=== PATIENT | female | born 1990 | race Caucasian/White ===

== ENCOUNTER 2020-06-06 09:44 | Inpatient (IN) | payer OTHER ==
[~2020-06-06] VITALS: Ht 154.9 cm; Wt 51.9 kg
--- NOTE | 2020-06-06 10:44 | PHYS DOC ---
General Adult EDM: Chief Complaint: SEIZURE HPI: HPI: History obtained from the patient. Patient is a 20-year-old female with a history of fibromyalgia and hypothyroidism who presents with chief complaint of bilateral upper and lower extremity rigidity that occurred 11 hours prior to arrival. Patient states she was laying down trying to sleep when she developed a severe headache. She states she noted rigidity in her upper and lower extremities it lasted for several minutes and resolved on its own. She denies any urinary incontinence. Denies any tongue biting. Denies any loss of consciousness. She reports a history of migraines with aura. She states that she did not experience any symptoms after this and felt much better therefore she slept throughout the night. States she called her primary care physician who encouraged to report to the ER. Notes a very mild headache currently. Denies neck pain. Denies vision or hearing changes. Denies vomiting or fever. Denies any confusion. Denies any falls. Denies any chest pain. Denies drug or alcohol abuse. States she has a history of panic attacks but this did not feel similar. No other complaints. Patient denies acute onset of headache reaching maximal intensity in under one hour. This is neither the worst headache that Patient has ever experienced, nor was the onset timed with exertional activity or trauma. Patient has not experienced any fever, unusual neck pain or stiffness, syncope, or near syncope. Patient denies numbness, tingling, or weakness of the extremities. Patient also denies personal history of intracranial hemorrhage (including SAH), aneurysm, or AV malformation. Review of Systems: Review of Systems: Constitutional: Denies fever or chills Eyes: Denies change in visual acuity HENT: Denies nasal congestion or sore throat Respiratory: Denies cough or shortness of breath Cardiovascular: Denies chest pain or edema GI: Denies abdominal pain, nausea, vomiting, bloody stools or diarrhea : Denies dysuria Musculoskeletal: Denies back pain or joint pain Integument: Denies rash Neurologic: Headache Endocrine: Denies polyuria or polydipsia Lymphatic: Denies swollen glands Psychiatric: Denies depression or anxiety Heart Score: Risk Factors: Risk Factors: DM, Current or recent (<one month) smoker, HTN, HLP, family history of CAD, obesity. Risk Scores: Score 0 - 3: 2.5% MACE over next 6 weeks - Discharge Home Score 4 - 6: 20.3% MACE over next 6 weeks - Admit for Clinical Observation Score 7 - 10: 72.7% MACE over next 6 weeks - Early Invasive Strategies Allergies: Allergies: Allergies Coded Allergies Type Severity Reaction Last Updated Verified No Known Drug Allergies 06/06/20 No Physical Exam: PE: Constitutional: Well developed, well nourished, no acute distress, non-toxic appearance. [] HENT: Normocephalic, atraumatic, bilateral external ears normal, oropharynx moist, no oral exudates, nose normal. [] Eyes: PERRLA, EOMI, conjunctiva normal, no discharge. [] Neck: Normal range of motion, no tenderness, supple, no stridor. [] Cardiovascular:Heart rate regular rhythm, no murmur [] Lungs & Thorax: Bilateral breath sounds clear to auscultation [] Abdomen: Bowel sounds normal, soft, no tenderness, no masses, no pulsatile masses. [] Skin: Warm, dry, no erythema, no rash. [] Back: No tenderness, no CVA tenderness. [] Extremities: No tenderness, no cyanosis, no clubbing, ROM intact, no edema. [] Neurologic: Alert with intact cognitive function. No aphasia, dysarthria, or neglect. GCS 15. Pupils 3 mm briskly reactive b/l. No APD present. Cranial nerves 2-12 grossly intact; no facial asymmetry present, tongue midline, shoulder shrugging strength intact. Strength 5/5 and symmetric throughout. Light touch sensation intact throughout. Cerebellar testing appropriate without evidence of dysdiadochokinesia. DTR's 2+ in all 4 extremities. Negative pronator drift bilaterally. Gait normal Psychologic: Affect normal, judgement normal, mood normal. [] Current Patient Data: Labs: Laboratory Tests Test 06/06/20 11:11 06/06/20 11:15 Bedside Urine HCG, Qualitative hcg negative White Blood Count 8.6 x10^3/uL Red Blood Count 5.04 x10^6/uL Hemoglobin 14.7 g/dL Hematocrit 43.7 % Mean Corpuscular Volume 87 fL Mean Corpuscular Hemoglobin 29 pg Mean Corpuscular Hemoglobin Concent 34 g/dL Red Cell Distribution Width 13.1 % Platelet Count 325 x10^3/uL Neutrophils (%) (Auto) 78 % Lymphocytes (%) (Auto) 16 % Monocytes (%) (Auto) 5 % Eosinophils (%) (Auto) 1 % Basophils (%) (Auto) 0 % Neutrophils # (Auto) 6.8 x10^3uL Lymphocytes # (Auto) 1.3 x10^3/uL Monocytes # (Auto) 0.4 x10^3/uL Eosinophils # (Auto) 0.1 x10^3/uL Basophils # (Auto) 0.0 x10^3/uL Sodium Level 136 mmol/L Potassium Level 2.3 mmol/L Chloride Level 93 mmol/L Carbon Dioxide Level 33 mmol/L Anion Gap 10 Blood Urea Nitrogen 15 mg/dL Creatinine 0.9 mg/dL Estimated GFR (Cockcroft-Gault) 74.0 Glucose Level 83 mg/dL Calcium Level 10.3 mg/dL Current Medications Medications (Trade) Dose Ordered Sig/Yudith Route PRN Reason Start Time Stop Time Status Last Admin Dose Admin Magnesium Sulfate 50 ml @ 25 mls/hr 1X ONCE IV 06/06/20 12:00 06/06/20 13:59 UNV Sodium Chloride 1,000 ml @ 100 mls/hr 1X ONCE IV 06/06/20 12:00 06/06/20 21:59 UNV EKG: EKG: [] EKG consistent with normal sinus rhythm. Ventricular rate of 82 bpm. Blanco normal. Intervals normal. No acute ischemic changes appreciated. Radiology/Procedures: Radiology/Procedures: [place] [address] IMAGING REPORT Signed PATIENT: DEION CAMARENA ACCOUNT: [id number] : 1990 LOCATION: ER AGE: 29 SEX: F EXAM STATUS: REG ER ORD. PHYSICIAN: AR MARINO DO REASON: LAROSE. 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 CT Dose Reduction Employed: One or more of the following individualized dose reduction techniques were utilized for this examination: 1. Automated exposure control 2. Adjustment of the mA and/or kV according to patient size 3. Use of iterative reconstruction technique. COMPARISON: None FINDINGS: Post-operative change: None. Acute change: No evidence of an acute infarct or other acute parenchymal process. Hemorrhage: No evidence of acute intracranial hemorrhage. Mass Lesion / Mass Effect: There is no evidence of an intracranial mass or extraaxial fluid collection. No significant mass effect. Chronic change: None apparent. Parenchyma: There is no significant volume loss. The brain parenchyma is otherwise within normal limits for age. Ventricles: The ventricles are within normal limits of size and configuration for age. Paranasal sinuses and skull base: The visualized paranasal sinuses are grossly clear. The skull base and imaged soft tissues are unremarkable. IMPRESSION: No evidence of acute intracranial abnormality. Electronically signed by: Silas Wagoner DO (06/06/2020 10:59 AM) [id number] DICTATED AND SIGNED BY: SILAS WAGONER DO DATE: 06/06/20 1059 CC: STEPHANIE,STAFF; AR MARINO DO ~ [] Course & Med Decision Making: Course & Med Decision Making Pertinent Labs and Imaging studies reviewed. (See chart for details) [] Patient is a well-appearing 29-year-old female who presents with a chief complaint of rigid-like activity in her upper and lower extremities bilaterally that occurred approximate 11 hours prior to arrival. History not consistent with seizure-like activity. Head CT was obtained however was unremarkable. Patient does have severe hypokalemia of 2.3. Unclear etiology is a patient states she has been eating and drinking well. She does not take any diuretics. Patient will require hospitalization for replacement. EKG without changes. She remains hemodynamically stable while in the emergency department. Dragon Disclaimer: Thomas Disclaimer: This electronic medical record was generated, in whole or in part, using a voice recognition dictation system. Departure Departure: Impression: Primary Impression: Hypokalemia Disposition: ADMITTED INPT THIS HOSP Condition: STABLE Referrals: NON,STAFF (PCP) AR MARINO DO Jun 06, 2020 10:44
--- NOTE | 2020-06-06 11:02 | RAD ---
EXAMINATION: CT HEAD WO CONTRAST (CT HEAD WITHOUT IV CONTRAST) CLINICAL HISTORY: LAROSE. 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 CT Dose Reduction Employed: One or more of the following individualized dose reduction techniques were utilized for this examination: 1. Automated exposure control 2. Adjustment of the mA and/or kV according to patient size 3. Use of iterative reconstruction technique. COMPARISON: None FINDINGS: Post-operative change: None. Acute change: No evidence of an acute infarct or other acute parenchymal process. Hemorrhage: No evidence of acute intracranial hemorrhage. Mass Lesion / Mass Effect: There is no evidence of an intracranial mass or extraaxial fluid collection. No significant mass effect. Chronic change: None apparent. Parenchyma: There is no significant volume loss. The brain parenchyma is otherwise within normal limits for age. Ventricles: The ventricles are within normal limits of size and configuration for age. Paranasal sinuses and skull base: The visualized paranasal sinuses are grossly clear. The skull base and imaged soft tissues are unremarkable. IMPRESSION: No evidence of acute intracranial abnormality. Electronically signed by: Silas Krueger DO (06/06/2020 10:59 AM) [id number]
[2020-06-06 11:39] LABS: BASO % 0 % (0-3); EOS # 0.1 x10^3/uL (0.0-0.7); EOS % 1 % (0-3); HEMATOCRIT 43.7 % (36.0-47.0); HEMOGLOBIN 14.7 g/dL (12.0-15.5); LYMPH # 1.3 x10^3/uL (1.0-4.8); LYMPH % 16 % (24-48); MEAN CORPUSCULAR HEMOGLOBIN 29 pg (25-35); MEAN CORPUSCULAR HGB CONC 34 g/dL (31-37); MEAN CORPUSCULAR VOLUME 87 fL (79-100); MONO # 0.4 x10^3/uL (0.0-1.1); MONO % 5 % (0-9); NEUT # 6.8 x10^3uL (1.8-7.7); NEUT % 78 % (31-73); PLATELET COUNT 325 x10^3/uL (140-400); RED BLOOD COUNT 5.04 x10^6/uL (3.50-5.40); RED CELL DISTRIBUTION WIDTH 13.1 % (11.5-14.5); WHITE BLOOD COUNT 8.6 x10^3/uL (4.0-11.0)
[2020-06-06 11:54] LABS: CALCIUM 10.3 mg/dL (8.5-10.1); CREATININE 0.9 mg/dL (0.6-1.0)
[2020-06-06 12:00] LABS: POTASSIUM 2.3 mmol/L (3.5-5.1)
[2020-06-06] MEDS ORDERED: MAGNESIUM SULFATE 2GM 50 ML IV ONE (12:00)
[2020-06-06] MEDS ORDERED: IV NORMAL SALINE 1,000ML 1,000 ML IV ONE (12:00)
[2020-06-06] MEDS: POTASSIUM CHLORIDE 10MEQ 100 ML IV SCH ×4 (12:21→17:11)
--- NOTE | 2020-06-06 12:23 | EKG ---
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
--- NOTE | 2020-06-06 13:38 | NUR ---
PATIENT ARRIVED TO UNIT VIA EMS. PATIENT IS PLEASANT AND COOPERATIVE UPON ARRIVAL. PATIENT IS ORIENTED TO ROOM AND PROCEDURES. PATIENT'S VS ARE STABLE AT TIME OF ADMISSION. PATIENT GIVEN ALL EDUCATION AND ADMISSION TEACHING.
[2020-06-06 15:00] VITALS: BP 117/67
[2020-06-06 20:01] VITALS: BP 112/73
[2020-06-06] MEDS: POTASSIUM CHLORIDE 20 MEQ TABLET.ER. PO SCH (20:35)
--- NOTE | 2020-06-06 20:45 | HP ---
ADMIT DATE: 06/06/2020 HISTORY OF PRESENT ILLNESS: The patient is a 29-year-old female patient with a history of fibromyalgia, hypothyroidism and bronchial asthma, who presented with chief complaint of bilateral upper and lower extremities ____ occurred about 11 hours prior to arrival. The patient stated that she was lying down, trying to sleep when she developed this severe headache. She states she noted rigidity in her upper and lower extremities that lasted several minutes and resolved on its own. She denied any urinary incontinence. She denied any tongue biting. Denied any loss of consciousness. She had had a history of migraine with aura. She states that she did not experience any symptoms after this and felt much better; therefore, she slept throughout the night. She states that she called her primary care physician who encouraged her to come to the Emergency Room. She notes a very mild headache currently when she arrived to the Emergency Room. Denied any neck pain. Denied any vision or hearing changes. Denies any vomiting or fever. Denied any confusion. Denied any symptoms like this before. She said she has a history of panic attacks, but did not feel similar. The patient denied any acute onset of headache, reaching maximum intensity and under one hour, this neither the worst headache the patient has ever experienced nor was the onset time ____ exertional activity or trauma. She has not experienced any fever, unusual neck pain or stiffness, syncope or near syncope. The patient denied any numbness, tingling, or weakness of the extremities. The patient also denied any personal history of intracranial hemorrhage, aneurysm or arteriovenous malformation. She was extensively investigated in the Emergency Room. She had an EKG, CT scan of the head without contrast as well as lab work. Her chemistry showed that she has extremely low potassium with a serum potassium of 2.3 and therefore was admitted to replenish her potassium. Her calcium was also slightly elevated. PAST MEDICAL HISTORY: Significant for hypothyroidism, bronchial asthma, fibromyalgia. PAST SURGICAL HISTORY: Significant for wisdom teeth extraction, tubal ligation and surgery for right hand. ALLERGIES: She has no known drug allergies. MEDICATIONS: She is on levothyroxine, does not know that dose and she has not taken it for a while. She is on albuterol inhaler 2 puffs as needed, CBD lotion for her fibromyalgia as well as ibuprofen. FAMILY HISTORY: Has 1 older brother with some autoimmune disease, but he is still alive. One younger brother is alive and healthy. Her father is alive in his 50s as well as mother in her 50s without any medical problems. She recalled that her grandmother used to have problem with her low potassium and has been in and out of the hospital, although she does not know or remember the specifics. SOCIAL HISTORY: She is . She has a 6-year-old daughter. She never smoked, does not drink alcohol or use any recreational drugs. 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 PHYSICAL EXAMINATION: GENERAL: On arrival, the patient looked well and was clearly in no apparent respiratory distress. No pallor, jaundice, cyanosis or thyromegaly. No jugular venous distention or limb edema. VITAL SIGNS: Her heart rate was 99, blood pressure was 134/90, temperature was 98.5, respiratory rate was 20, and oxygen saturation was 100%. HEAD, EYES, EARS, NOSE AND THROAT: Normocephalic, atraumatic. NECK: Supple. HEART: Showed normal first and second heart sounds. No gallop or murmur. CHEST: Clear to auscultation. No crepitation or rhonchi. ABDOMEN: Distended, soft, nontender. No guarding or rigidity. No organomegaly. All hernial orifices intact. Bowel sounds normal. NEUROLOGIC: She was awake, alert, responding appropriately. All cranial nerves intact. EXTREMITIES: She moves extremities without difficulty. LABORATORY DATA: Showed a white cell count of 8600, hemoglobin 14.7, hematocrit 44, MCV 87 and platelet count of 325,000. Her chemistry showed a serum sodium 136, potassium 2.3, chloride 93, bicarbonate 33, anion gap of 10, BUN 15, creatinine 0.9, estimated GFR was 74, glucose 83, calcium was 10.3. Her urine test was negative. CT scan of the head showed that the patient has no evidence of an acute infarct or other acute parenchymal process. No evidence of acute intracranial hemorrhage. There is no mass effect. There is no evidence of intracranial mass or extra-axial fluid collection, no significant mass effect. There is no significant volume loss at the brain parenchyma, is otherwise within normal limits of age. The ventricles are within normal limits for size and configuration for age. Paranasal sinuses and skull bases are grossly clear. The skull base and imaged soft tissue are unremarkable and the conclusion, the patient has no evidence of acute intracranial abnormality. ASSESSMENT AND PLAN: The patient was admitted with severe hypokalemia. We will replenish her potassium and repeat all her lab works tomorrow and if she remains stable, she can be discharged. CASIE YEH MD DR: RUSSEL/shlomo JOB#: [id number] / [id number]
[2020-06-06 22:49] VITALS: BP 113/61
[2020-06-07] MEDS: POTASSIUM CHLORIDE 20 MEQ TABLET.ER. PO SCH (00:02)
[2020-06-07 05:20] VITALS: BP 101/60
[2020-06-07 07:39] LABS: BASO % 0 % (0-3); EOS # 0.1 x10^3/uL (0.0-0.7); EOS % 2 % (0-3); HEMATOCRIT 36.8 % (36.0-47.0); HEMOGLOBIN 12.1 g/dL (12.0-15.5); LYMPH # 1.3 x10^3/uL (1.0-4.8); LYMPH % 21 % (24-48); MEAN CORPUSCULAR HEMOGLOBIN 29 pg (25-35); MEAN CORPUSCULAR HGB CONC 33 g/dL (31-37); MEAN CORPUSCULAR VOLUME 88 fL (79-100); MONO # 0.6 x10^3/uL (0.0-1.1); MONO % 9 % (0-9); NEUT # 4.2 x10^3uL (1.8-7.7); NEUT % 68 % (31-73); PLATELET COUNT 263 x10^3/uL (140-400); RED BLOOD COUNT 4.19 x10^6/uL (3.50-5.40); RED CELL DISTRIBUTION WIDTH 13.4 % (11.5-14.5); WHITE BLOOD COUNT 6.2 x10^3/uL (4.0-11.0)
[2020-06-07 09:06] LABS: CALCIUM 9.1 mg/dL (8.5-10.1); CREATININE 0.8 mg/dL (0.6-1.0); GFR 84.8; POTASSIUM 3.5 mmol/L (3.5-5.1)
[2020-06-07 09:20] LABS: ALBUMIN 3.7 g/dL (3.4-5.0); ALBUMIN/GLOBULIN RATIO 1.2 (1.0-1.7); TOTAL BILIRUBIN 0.8 mg/dL (0.2-1.0); TOTAL PROTEIN 6.9 g/dL (6.4-8.2)
[2020-06-07 10:49] VITALS: BP 164/97
[2020-06-07] MEDS ORDERED: POTA20TA4 PO (13:23)
--- NOTE | 2020-06-07 13:37 | NUR ---
PATIENT IS DISCHARGED HOME. DISCHARGED INSTRUCTION AND PRESCRIBED MEDICATION REVIEWED PT VERBALIZED UNDERSTANDING. PATIENT LEFT UNIT VIA AMBULATION. PATIENT IS TAKEN HOME BY FAMILY MEMBER VIA PERSONAL VEHICLE.
--- NOTE | 2020-06-07 22:19 | DS ---
DATE OF DISCHARGE: 06/07/2020 HOSPITAL COURSE: The patient was admitted yesterday with a complaint of stiffness of her upper and lower extremities and developed severe headache. She stated that she noted rigidity in her upper and lower extremities that lasted several minutes and resolved on its own. Denied any tongue biting or urinary incontinence. Denied any loss of consciousness. She does have a history of migraine headache with aura; however, she did not experience any symptoms after this and felt much better. Therefore, she slept throughout the night and when she came to the Emergency Room, she was found to have profound hypokalemia with potassium of only 2.3. She denied any nausea or vomiting. Denied any diarrhea. Denied any diuretic use. Never had this problem before. Her grandmother has had problems with hypokalemia in her 50s and 60s and has been in and out of the hospital multiple times, although she does not know exactly why she was admitted and her potassium was replenished. PHYSICAL EXAMINATION: GENERAL: When I saw her this afternoon, she looked well and was clearly in no apparent respiratory distress. No pallor, jaundice, cyanosis or thyromegaly. No jugular venous distention. No lower limb edema. VITAL SIGNS: Her heart rate was 85, blood pressure was 164/97. I ____ seems to be an odd measurement because all her other lab measurements are within normal range of around 110. Her temperature was 97.6, respiratory rate was 18 and oxygen saturation was 98% on room air. HEAD, EYES, EARS, NOSE AND THROAT: Showed normocephalic, atraumatic. NECK: Supple. CARDIAC: Normal first and second heart sounds. No gallop or murmur. CHEST: Clear to auscultation. No crepitation or rhonchi. ABDOMEN: Distended, soft, nontender. NEUROLOGIC: She was awake, alert, responding appropriately. All cranial nerves intact. EXTREMITIES: She moves extremities without difficulty. LABORATORY DATA: Showed white cell count 6200, hemoglobin 12, hematocrit 36, MCV 88 and platelet count of 263,000. Her chemistry showed serum sodium 139, potassium 3.5, chloride 105, bicarbonate 24, anion gap of 10, BUN 10, creatinine 0.8, estimated GFR was 84 mL per minute. Her glucose was 86, calcium was 9.1. Total bilirubin, AST, ALT, alkaline phosphatase were normal. Total protein was 6.9, albumin 3.7. The patient was discharged home with potassium chloride 20 mEq twice a day and was advised to make an appointment with her primary care physician to investigate this issue further as she definitely obviously has no obvious source of loss of potassium. She is not vomiting. She has not had any diarrhea. She is not on any diuretics and she is not using her even inhalers frequently that might cause transcellular shift. FINAL DISCHARGE DIAGNOSES: Profound hypokalemia, resolved. Cause is not clear. She has bronchial asthma, migraine headache and hypothyroidism as well as fibromyalgia. CASIE YEH MD DR: RUSSEL/shlomo JOB#: [id number] / [id number]
== END 2020-06-07 13:35 | disposition home or self-care (01) | DRG 641 ==
LOC: ER 09:44 → ICU 12:32 → 1 SOUTH 18:36
PROVIDERS: ADMIT Internal Medicine; ATTEND Internal Medicine
DX: E87.6 Hypokalemia (principal); M79.7 Fibromyalgia; E03.9 Hypothyroidism, unspecified; J45.909 Unspecified asthma, uncomplicated; Z98.51 Tubal ligation status; G43.909 Migraine, unspecified, not intractable, without status migrainosus
CPT/HCPCS: 36415; 70450; 80048; 80053; 81025; 85025; 93005; 96361; 96365; J3475; J3480; 99285-25; J7030